=== PATIENT | female | born 1960 | race Hispanic/Latino ===

== ENCOUNTER 2016-11-03 09:44 | Emergency (ER) | payer OTHER ==
[2016-11-03 09:45] VITALS: BMI 25.0
[2016-11-03 10:02] VITALS: RESP 16; TEMP 98.1
[2016-11-03] MEDS ORDERED: Naproxen 550 mg Tab PO STA (10:25)
[2016-11-03] MEDS ORDERED: Naproxen 550 mg Tab PO ONE (10:29)
--- NOTE | 2016-11-03 10:32 | C.PDOC ---
History Of Present Illness Patient presents to ED c/o right sided rib pain, present for approx 1 month. Pain is described as soreness, intermittent, worse with movement and deep breahs. Patient states she thinks pain started after she was on a carnival ride with her son, and it was pushing up against her right rib area. Patient seen on 10/29 at [facility] - blood work done, (+) D-dimer. CTA chest and VG scan done, low prob for PE. Patient states she took motrin several times, but pain has persisted so she came to ER. Patient denies SOB, cough, fever, abdominal pain, PMHx. Time Seen by Provider: 11/03/16 10:25 Chief Complaint (Nursing): Chest Pain History Per: Patient History/Exam Limitations: no limitations Onset/Duration Of Symptoms: Persistent Current Symptoms Are (Timing): Still Present Severity: Mild Quality: "Pain" Exacerbating Factors: Movement, Deep Breathing Past Medical History Reviewed: Historical Data, Nursing Documentation, Vital Signs Vital Signs: Last Vital Signs Temp 98.1 F 11/03/16 09:58 Pulse 87 11/03/16 10:49 Resp 16 11/03/16 10:49 BP 127/73 11/03/16 10:49 Pulse Ox 96 11/03/16 13:11 - Medical History PMH: No Chronic Diseases Surgical History: (x 2) - [facility] Procedures COLONOSCOPY (11/20/13) INJECT/INFUSE NEC (03/25/14) NEBULIZER THERAPY (07/07/13) Family History: States: No Known Family Hx - Social History Hx Alcohol Use: No Hx Substance Use: No - Immunization History Hx Tetanus Toxoid Vaccination: No Hx Influenza Vaccination: No Hx Pneumococcal Vaccination: No Review Of Systems Except As Marked, All Systems Reviewed And Found Negative. Constitutional: Negative for: Fever, Chills Cardiovascular: Negative for: Palpitations Respiratory: Positive for: Pleuritic Pain. Negative for: Cough, Shortness of Breath Gastrointestinal: Negative for: Nausea, Vomiting, Abdominal Pain Skin: Negative for: Rash Physical Exam - Physical Exam Appears: Well, Non-toxic, No Acute Distress Skin: Normal Color, Warm, Dry, No Rash Oral Mucosa: Moist Chest: Symmetrical, Tenderness (right lateral ribs immediately below breast, mild TTP, no rashes, no ecchymosis), No Ecchymosis, No Subcutaneous Emphysema Cardiovascular: Rhythm Regular Respiratory: Normal Breath Sounds, No Rales, No Rhonchi, No Wheezing Gastrointestinal/Abdominal: Normal Exam, Bowel Sounds, Soft, No Tenderness Neurological/Psych: Oriented x3 ED Course And Treatment ECG: Interpreted By Me, Viewed By Me (NSR 94 bpm, normal axis, no acute ST/T wave changes) ECG Interpretation: Normal O2 Sat by Pulse Oximetry: 96 (RA) Pulse Ox Interpretation: Normal Progress Note: Patient given PO Naprosyn and Flexeril. Reevaluation Time: 10:50 Reassessment Condition: Improved (Patient reassessed, pain has improved and she feels better. Patient is well appearing, with normal vitals, no chest pain, SOB , palpitations. Suspect costochondritis. Prior records and treatment at [facility] reviewed. Patient given Rxs for Naprosyn and Flexeril, and she was instructed to follow up with PMD in 1-2 days. She understands she should return ED if symptoms worsen.) Medical Decision Making Medical Decision Making: Wells' Criteria for Pulmonary Embolism Objectifies risk of pulmonary embolism. Clinical signs and symptoms of DVT No0 PE is #1 diagnosis OR equally likely No0 Heart rate > 100 No0 Immobilization at least 3 days OR surgery in the previous 4 weeks No0 Previous, objectively diagnosed PE or DVT No0 Hemoptysis No0 Malignancy w/ treatment within 6 months or palliative No0 0.0 points Low risk group: 1.3% chance of PE in an ED population. Another study assigned scores 4 as PE Unlikely and had a 3% incidence of PE. Disposition Counseled Patient/Family Regarding: Diagnosis, Need For Followup, Rx Given - Disposition Referrals: Adam Porter MD [Resident] - Disposition: HOME/ ROUTINE Disposition Time: 10:50 Condition: STABLE Additional Instructions: FOLLOW UP WITH YOUR DOCTOR IN 1-2 DAYS USE MEDICATIONS NEEDED RETURN TO ER IF SYMPTOMS WORSEN Prescriptions: Cyclobenzaprine [Cyclobenzaprine HCl] 10 mg PO BID PRN #12 tab PRN Reason: pain/muscle Naproxen [Naprosyn Tab] 375 mg PO BID PRN #20 tab PRN Reason: pain Instructions: Costochondritis (ED), Chest Wall Pain (ED) Forms: [employer] (Albanian) Print Language: TUVALUAN - POA Present On Arrival: None - Clinical Impression Clinical Impression: Costochondritis, acute, Chest wall pain
[2016-11-03 10:50] VITALS: BP 127/73; PULSE 87
[2016-11-03 13:11] VITALS: O2SAT 96
== END 2016-11-03 10:55 | disposition home or self-care (01) ==
LOC: C.ER 09:44
DX: M94.0 Chondrocostal junction syndrome [Tietze] (principal); R07.89 Other chest pain